=== PATIENT | female | born 2005 | race Caucasian/White ===

== ENCOUNTER 2024-09-12 10:15 | Emergency (ER) | payer SELFPAY ==
[2024-09-12 10:22] VITALS: BP 165/97; PULSE 102; RESP 17; TEMP 36.8; O2SAT 99; BMI 45.5
--- NOTE | 2024-09-12 10:24 | HMH.EDGENADL ---
Discharge Plan Disposition Chief Complaint: Upper Respiratory Infection Referrals Follow up/Referrals: Provider,Referral, [Primary Care Provider, Medical] - See instructions Clinical Impressions Clinical Impression: Congestion of nasal sinus Print Language Print Language: [place]ian Discharge ED Provider: Gilles Guillen Adult HPI General Chief complaint: Upper Respiratory Infection Stated complaint: overwatering eyes, pain in R ear, diarrhea Time Seen by Provider: 09/12/24 10:24 History of Present Illness HPI narrative: Patient is a 19-year-old female no past medical history presenting for congestion and right ear pain. Patient said that this started about 5 days ago and is progressively gotten worse since then. She has been on amoxicillin for an ear infection but her symptoms have continued. Patient has taken no medication besides amoxicillin at home. Patient said that her throat is also been hurting and has been using some spray which has had some help. She has had no fevers, chills, difficulty breathing or chest pain. Related Data Allergies Allergy/AdvReac Type Severity Reaction Status Date / Time INGREDIENT: NO KNOWN - NO Allergy Unknown Uncoded 03/10/17 15:20 KNOWN DRUG ALLERGY [facility] Disclaimer: The information contained in this section may have been updated after the patient was seen, as this information can be updated by other users. Social History Smoking Status: Never smoker alcohol intake: never current occupational status: employed Travel in the last 8 weeks?: None ROS Obtained: Yes All systems reviewed & no additional complaints except as documented Physical Exam General General appearance: alert and in no apparent distress ENT ENT exam: Present mucous membranes moist and other (No posterior ear tenderness or erythema) Expanded ENT Exam External ear exam: Absent periauricular adenopathy TM/Canal exam: Right TM: bulging (Without erythema or perforation) Chest Chest inspection: Present normal inspection and symmetric chest wall rise; Absent tenderness Respiratory Respiratory exam: Present normal lung sounds bilaterally Cardiovascular Cardiovascular exam: Present regular rate Abdominal Exam Abdominal exam: Present soft; Absent distention Neurological Exam Neurological exam: Present alert Medical Decision Making Medical Records Screening: Per USPSTF and CDC recommendations, given the prevalence of disease in our region, it is our hospital?s policy to screen for HIV and viral Hepatitis for all patients aged 18 and over and those with ongoing risk factors. Jaleel Inquiry Pt receiving controlled substance: No Vital Signs: 09/12/24 10:22 Temperature 98.3 F Temperature Source Oral Pulse Rate [Left Radial] 102 H Respiratory Rate 17 Blood Pressure [Right Arm] 165/97 H Blood Pressure Mean [Right Arm] 119 Blood Pressure Source [Right Arm] Automatic Cuff Blood Pressure Position [Right Arm] Sitting 02 Sat by Pulse Oximetry 99 Oxygen Delivery Method Room Air Orders (Tests/Meds): ED MEDICATIONS Discontinued Medications Generic Name Dose Route Start Last Admin Trade Name Maykel PRN Reason Stop Dose Admin Dexamethasone 10 mg 09/12/24 10:43 Dexamethasone 4mg Tablet PO 09/12/24 10:44 ONCE ONE Medical Decision Narrative: In summary, this 19-year-old female presents to the emergency department today with multiple complaints. On initial evaluation patient is well-appearing, with congestion and effusion of her right ear without external canal erythema or erythema of her TM. She is already on amoxicillin and is otherwise been afebrile. Additionally patient has been taking care of a child with RSV. She is currently being treated for an otitis media and amoxicillin would additionally cover strep throat. She has no petechial hemorrhages, or white patches on her tonsils. I offered testing for her and declined at this time.. Differential diagnosis includes but is not limited to viral syndrome, otitis media. Based on these concerns, I ordered Dex. On reassessment similar to initial evaluation in no acute distress. Patient discharged in stable condition. Will give her follow-up with a PCP per patient request. Critical Care Critical Care Time Critical Care Time: No
[2024-09-12] MEDS: DEXAMETHASONE 4MG TABLET 10 MG PO (10:55)
[2024-09-12 10:57] VITALS: BP 118/91; PULSE 112; RESP 16; TEMP 36.9; O2SAT 97
== END 2024-09-12 11:09 | disposition home or self-care (01) ==
PROVIDERS: Emergency Provider Student in an Organized Health Care Education/Training Program
DX: R09.81 Nasal congestion (principal)
CPT/HCPCS: 99283; J8540

== ENCOUNTER 2024-09-14 22:38 | Emergency (ER) | payer SELFPAY ==
[2024-09-14 22:43] VITALS: BP 187/103; PULSE 92; RESP 18; TEMP 36.6; O2SAT 99; BMI 45.6
--- NOTE | 2024-09-14 23:06 | ED_ITS ---
Discharge Plan Disposition Patient Disposition: Home, Self-Care Referrals Follow up/Referrals: Provider,Referral, [Primary Care Provider, Medical] - See instructions Activity Restrictions/Add. Instructions Additional Instructions/Restrictions: Please use eye ointment 4 times a day as discussed for the next week. Please follow-up with eye doctor if your symptoms or not improving over the next few days. Clinical Impressions Clinical Impression: Conjunctivitis Corneal abrasion Qualifiers: Encounter type: initial encounter Laterality: right Qualified Code(s): S05.01XA - Injury of conjunctiva and corneal abrasion without foreign body, right eye, initial encounter Print Language Print Language: [place] Citizen Discharge ED Provider: Mandeep Bryan General Adult HPI General Chief complaint: Eye Problems Stated complaint: can't see out of right eye, only shadows Time Seen by Provider: 09/14/24 22:56 Mode of Arrival: Ambulatory Source of Information: Patient Description of Symptoms (Recalled from ER Triage Doc. by RN): Pt presents for evaluation of her right eye. Pt states she was seen on thursday and was prescribed steroids and antiobiotics for an ear infection. Pt states she is now having blurred vision. History of Present Illness HPI narrative: 19-year-old female without significant past medical history presents for right eye pain. She reports the pain has been building over the last couple of days. She reports she has been itching it and thinks she may have scratched it. This is associated with about a week of viral symptoms preceding. She was placed on antibiotics at 1 point as well. Has not had any intraocular medications. She reports her vision is getting a little bit blurry in that eye. Reports that the eye is itchy and painful. Related Data Allergies Allergy/AdvReac Type Severity Reaction Status Date / Time INGREDIENT: NO KNOWN - NO Allergy Unknown Uncoded 03/10/17 15:20 KNOWN DRUG ALLERGY [facility] Disclaimer: The information contained in this section may have been updated after the patient was seen, as this information can be updated by other users. Social History (Updated 09/12/24 @ 10:57 by Gilles Guillen MD) Smoking Status: Current every day smoker alcohol intake: never current occupational status: employed Travel in the last 8 weeks?: None Have you lived/traveled outside [place] in past 30 days?: No Contact w/someone who lives/traveled outside [place] past 30 days?: No Exposure to someone with infectious disease in past 14 days?: No Do you have a fever (greater than 100.4 F or 38 C)?: No Have you tested positive for COVID-19?: No Exposed to someone with COVID-19 in past 14 days?: No Do you have a sore throat?: No Do you have a cough?: No Do you have any weakness?: No Do you have any diarrhea?: No Are you experiencing any unusual bleeding?: No Do you have any muscle aches/pain?: No Do you have any abdominal pain?: No Are you experiencing loss of taste or smell?: No ROS Obtained: Yes All systems reviewed & no additional complaints except as documented Physical Exam General General appearance: alert and in no apparent distress Head Head exam: atraumatic and normocephalic Eye Eye exam: Present PERRL and EOMI; Absent normal appearance (Right eye: Linear area of fluorescein uptake horizontally across the lower cornea. Minimal haziness at the medial aspect.) ENT ENT exam: Present normal oropharynx and normal external ear exam Neck Neck exam: Present normal inspection and full ROM Chest Chest inspection: Present normal inspection and symmetric chest wall rise; Absent tenderness Respiratory Respiratory exam: Present normal lung sounds bilaterally; Absent respiratory distress Cardiovascular Cardiovascular exam: Present regular rate and normal rhythm Abdominal Exam Abdominal exam: Present soft; Absent distention, tenderness or guarding Extremities Exam Extremities exam: Present normal inspection; Absent edema or joint swelling Back Exam Back exam: Present normal inspection; Absent tenderness Neurological Exam Neurological exam: Present alert and oriented X3; Absent motor sensory deficit Psychiatric Psychiatric exam: Present normal affect and normal mood Skin Skin exam: Present warm, dry and normal color Lymphatic Lymphatic Findings: no adenopathy Medical Decision Making Medical Records Medical records reviewed: Yes I reviewed the patient's medical records. Screening: Per USPSTF and CDC recommendations, given the prevalence of disease in our region, it is our hospital?s policy to screen for HIV and viral Hepatitis for all patients aged 18 and over and those with ongoing risk factors. Ajleel Inquiry Pt receiving controlled substance: No Jaleel was queried for this patient: No Vital Signs: 09/14/24 22:43 Temperature 97.8 F Temperature Source Oral Pulse Rate [Right] 92 H Respiratory Rate 18 Blood Pressure [Right Arm] 187/103 H Blood Pressure Mean [Right Arm] 131 Blood Pressure Source [Right Arm] Automatic Cuff Blood Pressure Position [Right Arm] Sitting 02 Sat by Pulse Oximetry 99 Lab Data Lab results reviewed: Yes I reviewed the patient's lab results. Orders (Tests/Meds): ED MEDICATIONS Discontinued Medications Generic Name Dose Route Start Last Admin Trade Name Maykel PRN Reason Stop Dose Admin Erythromycin 1 gm 09/14/24 23:07 Erythromycin Base 1 Gm Oint...G. OP 09/14/24 23:08 ONCE ONE Fluorescein Sodium 1 mg 09/14/24 23:07 Fluorescein Sodium 1mg Strip OP 09/14/24 23:08 ONCE ONE Tetracaine HCl 0 ml 09/14/24 23:07 Tetracaine 0.5% Opth Enedina 15ml OP 09/14/24 23:08 ONCE ONE Medical Decision Narrative: 19-year-old female without significant past medical history presents for right eye pain redness over the last couple of days. History was obtained via interactive discussion with patient. On arrival, patient is [afebrile, hemodynamically stable, satting appropriately, alert, oriented x4, GCS 15], moving all extremities spontaneously. Full physical exam performed and significant for corneal abrasion horizontally over the right cornea with conjunctival injection. Differential includes but is not limited to viral conjunctivitis, bacterial conjunctivitis, septal cellulitis, preseptal cellulitis, corneal abrasion, corneal ulcer, glaucoma. Patient was given tetracaine. Fluorescein staining was performed which shows linear area of foreseen uptake horizontally in the inferior aspect of the right cornea. Appears slightly hazy at the medial aspect. Appears to be a corneal abrasion, though early corneal ulcer is possible. I gave the patient erythromycin ointment and instructed her to follow-up with Optho tomorrow or the next day, especially if her symptoms are worsening and not improving with erythromycin ointment. Patient was discharged in stable condition. Procedures Risk/Benefits of Procedure(s) Were Explained: Yes Critical Care Critical Care Time Critical Care Time: No
[2024-09-14] MEDS: ERYTHROMYCIN BASE 1 GM OINT...G. OP (23:25)
[2024-09-14] MEDS: TETRACAINE 0.5% OPTH SOL 15ML OP (23:25)
[2024-09-14] MEDS: FLUORESCEIN SODIUM 1MG STRIP 1 MG OP (23:25)
[2024-09-14 23:27] VITALS: BP 178/89; PULSE 90; RESP 18; TEMP 36.6; O2SAT 99
== END 2024-09-14 23:30 | disposition home or self-care (01) ==
PROVIDERS: Emergency Provider Emergency Medicine
DX: S05.01XA Injury of conjunctiva and corneal abrasion without foreign body, right eye, initial encounter (principal); H57.11 Ocular pain, right eye; X58.XXXA Exposure to other specified factors, initial encounter
CPT/HCPCS: 99283